=== PATIENT | female | born 1965 | race Caucasian/White ===

== ENCOUNTER → 2017-08-03 | Outpatient (CLI) | payer BC | END | disposition home or self-care (01) | LOC: LABPAT 09:24 | PROVIDERS: ATTEND Urology | DX: Z01.810 Encounter for preprocedural cardiovascular examination (principal); N20.0 Calculus of kidney; Z01.812 Encounter for preprocedural laboratory examination | CPT/HCPCS: 93005 ==

== ENCOUNTER 2017-08-08 08:44 | Day surgery (SDC) | payer BC ==
[2017-08-04 16:28] VITALS: BMI 44.0
[~2017-08-08 08:44] MED LIST: DEXAMETHASONE SOD PHOSPHATE 10 MG/ML 1 ML VIAL IV ONE; HYDROmorphone 1 MG/ML 1 ML SYRINGE IVP PRN; LACTATED RINGERS 1,000 ML IV SCH; ONDANSETRON 4 MG/2 ML VIAL IVP ONE; Pre Op ABX Message 1 EACH MISC MISCELLANE ONE
--- NOTE | 2017-08-08 09:09 | XR ---
EXAMINATION TYPE: XR KUB DATE OF EXAM: 08/08/2017 CLINICAL DATA: 51-year-old female left-sided pain, preoperative assessment, left-sided kidney stone, [facility] COMPARISON: None FINDINGS: Lung bases are clear. Supine imaging limited for assessment of free intraperitoneal air. A couple phleboliths in the pelvis. Numerous coils from prior abdominal wall mesh repair. Nonobstructive bowel gas pattern with mild stool burden. 2.2 cm calculus projecting in the left mid abdomen. Old avulsion fracture deformity at the right greater trochanter. IMPRESSION: 2.2 cm left renal calculus.
[2017-08-08 09:29] LABS: Glucose,Whole Blood 138 mg/dL (75-99)
[2017-08-08] MEDS ORDERED: LIDOCAINE 1% 20 ML VIAL (10MG/ML) FOR IV START INTRADERMA ONE (09:34)
[2017-08-08] MEDS ORDERED: PROPOFOL 10 MG/ML 20 ML VIAL IV ONE (09:41)
[2017-08-08] MEDS ORDERED: MIDAZOLAM 2 MG/2 ML VIAL ONE (09:41)
[2017-08-08] MEDS ORDERED: fentaNYL (PF) 50 MCG/ML 2 ML AMP ONE (09:41)
[2017-08-08] MEDS ORDERED: SUCCINYLCHOLINE CHLORIDE 100 MG/5 ML SYR IV ONE (09:41)
[2017-08-08] MEDS ORDERED: LABETALOL 5 MG/ML VIAL MDV ONE (09:41)
--- NOTE | 2017-08-08 10:40 | P.OP ---
Date of Procedure: 08/08/17 Preoperative Diagnosis: Left renal calculus large Postoperative Diagnosis: Same Procedure(s) Performed: Cystoscopy, placement of 6 x 24 double-J catheter left, shockwave lithotripsy 2500 shocks at energy level IV Anesthesia: TOO Surgeon: Diogenes Marie Estimated Blood Loss (ml): 0 Pathology: none sent Condition: stable Disposition: PACU Indications for Procedure: The patient is a 51-year-old obese female with a 2 cm left renal pelvic stone who comes for shockwave lithotripsy. She has declined percutaneous nephrostolithotomy. She'll a double-J catheter placed at the same time. Description of Procedure: Patient is brought to the operating suite and placed on the lithotripsy table in a supine position. Given a general endotracheal anesthesia. She's placed in a frog position with a sterile prep and drape. Cystoscopy of the Foroblique lens and 22-Occitan sheath identifies a left ureteral orifice. Through the scope was passed 5 straight wire into the renal pelvis. Over the wires passed a 6 x 24 double-J catheter that coils in the renal pelvis and in the bladder. She's taken out of the frog position. The stone was seen in 2 views of fluoroscopy. 2500 shocks at energy level IV administered to fracture the stone. Stone fractures nicely. Then the procedure the patient's awake and returned recovery in good condition and tolerated procedure well. She'll be discharged home upon recovery and found the office in one week.
[2017-08-08 11:22] VITALS: TEMP 97.2
[2017-08-08 12:09] VITALS: RESP 18
[2017-08-08] MEDS ORDERED: HYDROcodone/APAP 5-325MG 1 EACH TAB PO ONE (12:33)
[2017-08-08 12:53] VITALS: PULSE 71
[2017-08-08 13:20] VITALS: BP 124/63
== END 2017-08-08 13:36 | disposition home or self-care (01) ==
LOC: ORWHC2ENDO 08:44
PROVIDERS: ATTEND Urology
DX: N20.0 Calculus of kidney (principal); I48.91 Unspecified atrial fibrillation; Z86.718 Personal history of other venous thrombosis and embolism; I11.9 Hypertensive heart disease without heart failure; E78.5 Hyperlipidemia, unspecified; E66.9 Obesity, unspecified; Z68.41 Body mass index [BMI] 40.0-44.9, adult; K76.0 Fatty (change of) liver, not elsewhere classified; M19.90 Unspecified osteoarthritis, unspecified site; F32.9 Major depressive disorder, single episode, unspecified; F17.200 Nicotine dependence, unspecified, uncomplicated; G47.33 Obstructive sleep apnea (adult) (pediatric); Z99.89 Dependence on other enabling machines and devices; K21.9 Gastro-esophageal reflux disease without esophagitis; Z79.82 Long term (current) use of aspirin; Z79.891 Long term (current) use of opiate analgesic; Z79.899 Other long term (current) drug therapy; Z88.2 Allergy status to sulfonamides
CPT/HCPCS: 74000; 50590; C2625; C1769; J2250; J1100; J2405; J3010; J0330; J2704

== ENCOUNTER → 2017-08-31 | Outpatient (CLI) | payer BC ==
[2017-08-31 14:29] LABS: Basophils # (A) 0.1 k/uL (0-0.2); Basophils % (A) 1 %; CHCM 31.6; Eosinophils # (A) 0.4 k/uL (0-0.7); Eosinophils % (A) 5 %; HCT 41.8 % (34.0-46.0); HDW 3.02; HGB 13.5 gm/dL (11.4-16.0); Hypochromasia Slight; Luc # (Auto) 0.19; Luc % (Auto) 3; Lymphocytes # (A) 2.3 k/uL (1.0-4.8); Lymphocytes % (A) 32 %; MCH 29.7 pg (25.0-35.0); MCHC 32.3 g/dL (31.0-37.0); MCV 92.1 fL (80.0-100.0); Mean Platelet Volume 7.4; Monocytes # (A) 0.4 k/uL (0-1.0); Monocytes % (A) 6 %; Neutrophils # (A) 3.9 k/uL (1.3-7.7); Neutrophils % (A) 54 %; RBC 4.54 m/uL (3.80-5.40); WBC 7.3 k/uL (3.8-10.6); WBC (Perox) 7.91
[2017-08-31 14:36] LABS: Anion Gap 10 mmol/L; Blood Urea Nitrogen 10 mg/dL (7-17); Carbon Dioxide 28 mmol/L (22-30); Chloride 105 mmol/L (98-107); Glucose 108 mg/dL (74-99); Non-African American GFR(MDRD) >60 (>60 ml/min/1.73 sqM); Potassium 5.6 mmol/L (3.5-5.1); Sodium 143 mmol/L (137-145)
== END | disposition home or self-care (01) ==
LOC: LABPAT 14:04
PROVIDERS: ATTEND Urology
DX: Z01.812 Encounter for preprocedural laboratory examination (principal); N20.2 Calculus of kidney with calculus of ureter; R35.0 Frequency of micturition; Z51.81 Encounter for therapeutic drug level monitoring; Z79.01 Long term (current) use of anticoagulants
CPT/HCPCS: 36415; 80048; 85025; 87077; 87086; 87186

== ENCOUNTER → 2017-09-09 | Outpatient (CLI) | payer BC ==
--- NOTE | 2017-09-09 09:50 | XR ---
EXAMINATION TYPE: XR abdomen 1V DATE OF EXAM: 09/09/2017 COMPARISON: 09/05/2017 HISTORY: Left renal calculus TECHNIQUE: One view abdominal series FINDINGS: The osseous structures are intact. The bowel gas pattern is nonspecific. The previously noted ureteral stent remains in position. Additional postoperative changes seen. 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 Calcifications overlying the left kidney previously noted are not seen on today's exam. Calcification s in the pelvis appear to be stable in outside the course of the ureteral stent and likely vascular.. IMPRESSION: 1. Nonspecific abdomen. No definite suspicious calcifications.
== END | disposition home or self-care (01) ==
LOC: RADXRMAIN 09:21
PROVIDERS: ATTEND Urology
DX: N20.1 Calculus of ureter (principal)
CPT/HCPCS: 74000

== ENCOUNTER → 2020-07-23 | Outpatient (CLI) | payer BC | END | disposition home or self-care (01) | LOC: LABWHC1 14:17 | PROVIDERS: ATTEND Nurse Practitioner Family | DX: R07.0 Pain in throat (principal) | CPT/HCPCS: U0003; C9803 ==

== ENCOUNTER 2020-07-28 13:30 | Emergency (ER) | payer BC ==
[2020-07-28] MEDS ORDERED: DEXAMETHASONE SOD PHOSPHATE 10 MG/ML 1 ML VIAL IV STA (13:46)
[2020-07-28] MEDS ORDERED: KETOROLAC 15 MG/ML 1 ML VIAL IVP STA (13:46)
[2020-07-28] MEDS ORDERED: CLINDAMYCIN 600 MG in DEXTROSE 5% IN WATER 50 ML IVPB STA ×2 (13:47)
[2020-07-28] MEDS ORDERED: SODIUM CHLORIDE 0.9% 500 ML 500 ML IV ONE (13:55)
--- NOTE | 2020-07-28 14:07 | ED ---
General Adult HPI - General Chief complaint: ENT Stated complaint: Swollen Throat Time Seen by Provider: 07/28/20 13:38 Source: patient, RN notes reviewed, old records reviewed Mode of arrival: ambulatory Limitations: no limitations - History of Present Illness Initial comments: 54-year-old female presenting for evaluation of sore throat, subjective fever. Patient has had symptoms for approximate 5 days. She was started on amoxicillin and steroids by her primary care physician. She's had persistent pain, difficulty swallowing. She states the pain is predominantly on the right side. No vomiting. She's been able to only consumes small amounts of liquids secondary to the pain. - Related Data Home Medications Medication Instructions Recorded Confirmed ALPRAZolam [Xanax] 0.25 mg PO BID PRN 08/04/17 09/05/17 Aspirin 325 mg PO DAILY 08/04/17 08/31/17 Citalopram Hydrobromide 40 mg PO HS 08/04/17 09/05/17 [Citalopram HBr] Multivitamins, Thera [Multivitamin 1 tab PO DAILY 08/04/17 08/31/17 (formulary)] Ondansetron [Zofran] 4 - 8 mg PO Q12HR PRN 08/04/17 09/05/17 Propranolol HCl [Inderal LA] 160 mg PO QAM 08/04/17 09/05/17 Previous Rx's Medication Instructions Recorded Hydrocodone/Acetaminophen [[place] 1 - 2 each PO Q4HR PRN #20 tab 09/05/17 5-325] Allergies Allergy/AdvReac Type Severity Reaction Status Date / Time Sulfa (Sulfonamide Allergy Rash/Hives Verified 07/28/20 13:37 Antibiotics) Review of Systems ROS Statement: Those systems with pertinent positive or pertinent negative responses have been documented in the HPI. ROS Other: All systems not noted in ROS Statement are negative. Past Medical History Past Medical History: Atrial Flutter History of Any Multi-Drug Resistant Organisms: None Reported Past Surgical History: Coronary Bypass/CABG, Hernia Repair, Orthopedic Surgery Past Psychological History: Anxiety Smoking Status: Current every day smoker Past Alcohol Use History: Rare Past Drug Use History: Marijuana General Exam Limitations: no limitations General appearance: alert, in distress Head exam: Present: atraumatic, normocephalic Eye exam: Present: normal appearance, PERRL ENT exam: Present: other (Right-sided submandibular induration and swelling, trismus, no posterior oropharynx is only partially visualized secondary to trismus, there appears to be soft tissue swelling in the right peritonsillar region.) Neck exam: Present: lymphadenopathy Respiratory exam: Present: normal lung sounds bilaterally. Absent: respiratory distress, wheezes Cardiovascular Exam: Present: regular rate, normal rhythm GI/Abdominal exam: Present: soft. Absent: distended, tenderness, guarding, rebound Extremities exam: Present: normal inspection, normal capillary refill. Absent: pedal edema Neurological exam: Present: alert, oriented X3 Psychiatric exam: Present: normal affect, normal mood Skin exam: Present: warm, dry, intact Course Vital Signs 07/28/20 13:34 Temperature 98.0 F Pulse Rate 75 Respiratory 97 H Rate Blood Pressure 170/108 O2 Sat by Pulse 98 Oximetry Medical Decision Making - Medical Decision Making 54-year-old female with severe sore throat, difficulty swallowing. Patient has trismus on exam with significant soft tissue swelling in the right submandibular region. She does appear to have some soft tissue swelling in the right peritonsillar region although this exam is limited secondary to trismus. The patient is maintaining her airway, no stridor. Vital signs are stable. Workup was initiated, patient has mild leukocytosis at 10.7, she has normal electrolytes, normal lactic acid. CT is performed which shows significant soft tissue swelling in the right submandibular gland as well as an intramuscular abscess 3.1 x 1.5 cm in the right pterygoid muscle. The airway is patent on CT. She's given Decadron and a dose of clindamycin in the emergency department. This institution does not currently have ENT coverage and patient will require either oral maxillofacial or ENT or a combination of both for evaluation. I did discuss case with Dr. Davidson from [facility] who will accept transfer. - Lab Data Result diagrams: 07/28/20 14:07/28/20 14:07 Lab Results 07/28/20 07/28/20 07/28/20 Range/Units 14:07 14:07 14:07 WBC 10.7 H (3.8-10.6) k/uL RBC 5.36 (3.80-5.40) m/uL Hgb 15.5 (11.4-16.0) gm/dL Hct 46.5 H (34.0-46.0) % MCV 86.8 (80.0-100.0) fL MCH 28.8 (25.0-35.0) pg MCHC 33.2 (31.0-37.0) g/dL RDW 13.2 (11.5-15.5) % Plt Count 222 (150-450) k/uL Neutrophils % 68 % Lymphocytes % 18 % Monocytes % 9 % Eosinophils % 1 % Basophils % 2 % Neutrophils # 7.3 (1.3-7.7) k/uL Lymphocytes # 1.9 (1.0-4.8) k/uL Monocytes # 0.9 (0-1.0) k/uL Eosinophils # 0.1 (0-0.7) k/uL Basophils # 0.2 (0-0.2) k/uL Sodium 139 (137-145) mmol/L Potassium 3.6 (3.5-5.1) mmol/L Chloride 102 (98-107) mmol/L Carbon Dioxide 27 (22-30) mmol/L Anion Gap 10 mmol/L BUN 19 H (7-17) mg/dL Creatinine 0.74 (0.52-1.04) mg/dL Est GFR (CKD-EPI)AfAm >90 (>60 ml/min/1.73 sqM) Est GFR (CKD-EPI)NonAf >90 (>60 ml/min/1.73 sqM) Glucose 96 (74-99) mg/dL Plasma Lactic Acid [place] 1.2 (0.7-2.0) mmol/L Calcium 10.0 (8.4-10.2) mg/dL Total Bilirubin 0.9 (0.2-1.3) mg/dL AST 24 (14-36) U/L ALT 23 (4-34) U/L Alkaline Phosphatase 72 (38-126) U/L Total Protein 8.1 (6.3-8.2) g/dL Albumin 4.5 (3.5-5.0) g/dL Critical Care Time Critical Care Time: Yes Total Critical Care Time: 35 Disposition Clinical Impression: Submandibular abscess, Musculoskeletal disorder involving lateral pterygoid Disposition: OTHER INSTITUTION NOT DEFINED Condition: Stable Is patient prescribed a controlled substance at d/c from ED?: No Referrals: Ana Barrett III, MD [Primary Care Provider] - 1-2 days Time of Disposition: 15:00 - Out of Hospital Transfer - Req. Specs Out of Hospital Transfer - Requested Specifics: Other Emergency Center ([facility])
[2020-07-28 14:19] LABS: Basophils # (A) 0.2 k/uL (0-0.2); Basophils % (A) 2 %; Eosinophils # (A) 0.1 k/uL (0-0.7); Eosinophils % (A) 1 %; HCT 46.5 % (34.0-46.0); HGB 15.5 gm/dL (11.4-16.0); Lymphocytes # (A) 1.9 k/uL (1.0-4.8); Lymphocytes % (A) 18 %; MCH 28.8 pg (25.0-35.0); MCHC 33.2 g/dL (31.0-37.0); MCV 86.8 fL (80.0-100.0); Monocytes # (A) 0.9 k/uL (0-1.0); Monocytes % (A) 9 %; Neutrophils # (A) 7.3 k/uL (1.3-7.7); Neutrophils % (A) 68 %; Platelet Count 222 k/uL (150-450); RBC 5.36 m/uL (3.80-5.40); RDW 13.2 % (11.5-15.5); WBC 10.7 k/uL (3.8-10.6)
[2020-07-28 14:27] LABS: ALT 23 U/L (4-34); AST 24 U/L (14-36); African American GFR (CKD) >90 (>60 ml/min/1.73 sqM); Albumin 4.5 g/dL (3.5-5.0); Alkaline Phosphatase 72 U/L (38-126); Anion Gap 10 mmol/L; Blood Urea Nitrogen 19 mg/dL (7-17); Carbon Dioxide 27 mmol/L (22-30); Chloride 102 mmol/L (98-107); Glucose 96 mg/dL (74-99); Non-African American GFR(CKD) >90 (>60 ml/min/1.73 sqM); Potassium 3.6 mmol/L (3.5-5.1); Sodium 139 mmol/L (137-145); Total Bilirubin 0.9 mg/dL (0.2-1.3); Total Protein 8.1 g/dL (6.3-8.2)
--- NOTE | 2020-07-28 14:35 | CT ---
EXAMINATION TYPE: CT soft tissue neck w con DATE OF EXAM: 07/28/2020 COMPARISON: None HISTORY: 54 year-old female Swollen throat, right peritonsillar, submandibular TECHNIQUE: Contiguous axial scanning of the soft tissues of the neck performed with IV Contrast, cooper ent injected with 100 mL of Isovue 300. Coronal/sagittal reconstructions performed. CT DLP: 315.5 mGycm Automated exposure control for dose reduction was used. FINDINGS: Visualized intracranial structures, orbits and globes, paranasal sinuses, and mastoid air cells appea r clear. Nasopharynx is clear. Asymmetric right palatine tonsillar soft tissue prominence and medial deviation secondary to severe a symmetric swelling of the right pterygoid musculature. There is an associated intramuscular abscess m easuring 1.5 cm wide and 3.1 cm craniocaudal. Asymmetric swelling in inferior displacement and surrounding fat stranding of the right sided submand ibular gland.. Asymmetric right station 2A lymph nodes measuring up to 1.5 cm short axis, sagittal image 29, coronal image 37, and axial image 55. Some asymmetric prominent right submandibular space lymph nodes are al so noted measuring up to 7 mm. Parotid glands are bilaterally atrophic. The left submandibular and thyroid glands are satisfactory. Glottic and subglottic structures as well as the tracheal column and visualized upper lungs are clear . Large dental caries involving the right maxillary first molar with complete erosion of the crown. Add itional large dental caries involving the anterior aspect of the right mandibular first molar. IMPRESSION: 1. SOFT TISSUE SWELLING AND SURROUNDING INFLAMMATION OF THE RIGHT SUBMANDIBULAR GLAND COULD REPRESENT A SIALOADENITIS. HOWEVER, THERE IS A CONTIGUOUS MYOSITIS OF THE RIGHT PTERYGOID MUSCULATURE GIVEN SE BUCKY SWELLING AND A 3.1 X 1.5 CM INTRAMUSCULAR ABSCESS. 2. THIS RESULTS IN SOME MASS EFFECT ONTO THE MUCOSAL SPACE OF THE OROPHARYNX BUT DOES NOT CAUSE ANY A IRWAY COMPROMISE. 3. REACTIVE RIGHT UPPER CERVICAL LYMPH NODE MEASURING UP TO 1.5 CM. FOLLOW-UP AFTER TREATMENT TO ENSU RE RESOLUTION. 4. DENTAL CARIES INVOLVING THE RIGHT MAXILLARY AND MANDIBULAR FIRST MOLARS. HOWEVER, NO DISCRETE RADHA APICAL LUCENCY IS SEEN.
[2020-07-28 15:25] VITALS: BP 132/72; PULSE 89; TEMP 98.7
[2020-07-28 16:01] VITALS: RESP 18
== END 2020-07-28 16:03 | disposition other institution (70) ==
LOC: EC 13:30
DX: K12.2 Cellulitis and abscess of mouth (principal); M79.89 Other specified soft tissue disorders; F41.9 Anxiety disorder, unspecified; F17.200 Nicotine dependence, unspecified, uncomplicated; I48.92 Unspecified atrial flutter; Z79.899 Other long term (current) drug therapy; Z95.1 Presence of aortocoronary bypass graft; Z88.2 Allergy status to sulfonamides
CPT/HCPCS: 36415; 80053; 83605; 85025; 87040; 70491; 99291; 96365; 96375 ×2; J1100; J1885; Q9967